=== PATIENT | male | born 1970 | race Caucasian/White ===

== ENCOUNTER 2018-07-19 16:39 | Emergency (ER) | payer OTHER ==
[2018-07-19] MEDS: CEFTRIAXONE 1 GM INJ IM (17:13)
== END 2018-07-19 17:29 | disposition home or self-care (01) ==
LOC: FTE 16:39
DX: K08.89 Other specified disorders of teeth and supporting structures (principal); E11.9 Type 2 diabetes mellitus without complications
CPT/HCPCS: 96372; 99284-25